=== PATIENT | female | born 1970 | race Caucasian/White ===

== ENCOUNTER 2016-11-10 08:09 | Outpatient (CLI) | payer OTHER ==
[~2016-11-10 08:09] MED LIST changes: +ACETAMINOPHEN TAB 650MG DOSE (2X325MG) PO SCH; -HYDR-3713 PO; +diphenhydrAMINE 25 MG CAP PO SCH
[2016-11-10] MEDS ORDERED: dexameTHASONE 20 MG/5 ML VIAL (J1100) IV SCH (08:45)
[2016-11-10] MEDS ORDERED: diphenhydrAMINE INJ 50MG/ML VIAL (J1200) IV ONE (09:00)
[2016-11-10] MEDS ORDERED: IRON DEXTRAN INJ 25 MG in NS 50 ML IV ONE (09:00)
[2016-11-10] MEDS ORDERED: IRON DEXTRAN INJ 75 MG in NS 100 ML IV ONE (10:15)
[2016-11-10] MEDS ORDERED: HYDR-3713 PO (16:32)
== END 2016-11-10 12:30 | disposition home or self-care (01) ==
LOC: M INFU 08:09
PROVIDERS: ATTEND Internal Medicine Medical Oncology
DX: D80.9 Immunodeficiency with predominantly antibody defects, unspecified (principal); R11.0 Nausea; R06.89 Other abnormalities of breathing; T45.4X5A Adverse effect of iron and its compounds, initial encounter; Y92.238 Other place in hospital as the place of occurrence of the external cause
CPT/HCPCS: 96365; J1100; J1200; J1750

== ENCOUNTER → 2016-11-10 | Outpatient (CLI) | payer OTHER ==
[~2016-11-10] MED LIST: ALB2.5NEB INH; FERR325T3 PO; FLEX10TA2 PO; FURO20TA2 PO; HYDR-3713 PO; IBUP800T23 PO; INDOPOW PO; IRON65TA PO; LEVA500T PO; MELO15TA3 PO; NEUR300C PO; PRED10PA PO; SYNT25TA PO; SYNT75TA PO; TIZA4CAP3 PO; TRAM50TA2 PO; ULTR50TA PO; VITA50003 PO; VITA500047 PO; iron PO
--- NOTE | 2016-11-12 11:03 | SLEEPCENT ---
DATE OF PROCEDURE: 11/10/2016 ORDERED BY: Gallo Hensley. Nocturnal polysomnography was performed for evaluation of sleep apnea syndrome symptoms. 6 hours and 32 minutes of data were reviewed. There were 235 minutes of sleep identified. Sleep latency was prolonged at 29 minutes Rapid eye movement (REM) latency was prolonged at 263 minutes. Sleep architecture showed severe fragmentation and poor progression. Overall sleep efficiency was 61%. The patient's EKG showed a sinus rhythm with an average heart rate of 67 beats per minute. EEG showed reasonably normal wave forms for awake and sleep. There were 307 respiratory events identified of 10 seconds in duration or greater for an apnea-hypopnea index of 78.4. The events were not exclusive to sleep stage, more frequent but not exclusive to the supine posture. They were primarily obstructive in nature. Arousals from respiratory events occurred 35.7 times per hour. Oxygen desaturations fell into the 70s. There was minimal limb activity and remaining measures of sleep physiology were normal. IMPRESSION: Very severe obstructive sleep apnea syndrome (G47.33). Apnea-hypopnea index 78.4. RECOMMENDATION: The patient should be encouraged to return to the sleep disorder center at her earliest convenience for pressure therapy. In the interim, alcohol and sedative avoidance should be practiced and caution exercised during the operation of motor vehicles.
== END | disposition home or self-care (01) ==
LOC: M SLEEP 19:55
PROVIDERS: ATTEND Nurse Practitioner Adult Health
DX: G47.33 Obstructive sleep apnea (adult) (pediatric) (principal)

== ENCOUNTER → 2017-01-18 | Outpatient (REF) | payer OTHER ==
[~2017-01-18] MED LIST changes: -ACETAMINOPHEN TAB 650MG DOSE (2X325MG) PO SCH; +HYDR-3713 PO; -diphenhydrAMINE 25 MG CAP PO SCH
[2017-01-18 18:46] LABS: PERCENT SATURATION 5.5 % (13.2-37.4)
== END ==
LOC: M LAB REF 16:56
PROVIDERS: ATTEND Internal Medicine Medical Oncology
DX: D50.9 Iron deficiency anemia, unspecified (principal)

== ENCOUNTER → 2017-02-02 | Outpatient (REF) | payer OTHER | LOC: M LAB REF 17:13 | PROVIDERS: ATTEND Internal Medicine Medical Oncology | DX: D50.9 Iron deficiency anemia, unspecified (principal) ==

== ENCOUNTER 2017-02-03 13:49 | Outpatient (CLI) | payer OTHER ==
[~2017-02-03] VITALS: Ht 170.2 cm; Wt 145.0 kg
[2017-02-03] VITALS (8 sets, daily range): BP systolic 120–172; BP diastolic 56–89
[2017-02-03] MEDS ORDERED: ACETAMINOPHEN TAB 650MG DOSE (2X325MG) PO ONE (14:15)
[2017-02-03] MEDS ORDERED: diphenhydrAMINE 25 MG CAP PO ONE (14:15)
== END 2017-02-03 23:33 | disposition home or self-care (01) ==
LOC: M OPCLI4PV 13:49 → M MSPAV 13:54 → M OPCLI4PV 23:33
PROVIDERS: ATTEND Internal Medicine Medical Oncology
DX: D50.9 Iron deficiency anemia, unspecified (principal)
CPT/HCPCS: 36430; P9016

== ENCOUNTER → 2017-03-16 | Outpatient (REF) | payer OTHER | LOC: M LAB REF 16:24 | PROVIDERS: ATTEND Internal Medicine Medical Oncology | DX: D50.9 Iron deficiency anemia, unspecified (principal) ==

== ENCOUNTER → 2017-04-28 | Outpatient (CLI) | payer OTHER ==
[~2017-04-28] MED LIST changes: +IBUP1TAB7 PO; -IBUP800T23 PO; +LEVA1TAB2 PO; -LEVA500T PO; +VITA1CAP40 PO; -VITA50003 PO
[2017-04-28 21:20] LABS: ALBUMIN/GLOBULIN RATIO 0.77 (1.00-1.93); ALKALINE PHOSPHATASE 95 U/L (45-117); ALT/SGPT 100 U/L (12-78); AST/SGOT 56 U/L (15-37); BILIRUBIN,TOTAL 0.3 MG/DL (0.2-1.0); BLOOD UREA NITROGEN 9 MG/DL (7-18); CALCIUM LEVEL 8.5 MG/DL (8.5-10.1); CARBON DIOXIDE LEVEL 25 MEQ/L (21-32); CHOLESTEROL LEVEL 178 MG/DL (<200); CREATININE FOR GFR 0.66 MG/DL (0.55-1.02); FERRITIN 22 NG/ML (8-252); GLOMERULAR FILTRATION RATE > 60.0 (>58); GLUCOSE, FASTING 101 MG/DL (70-105); TOTAL PROTEIN 6.9 GM/DL (6.4-8.2); TRIGLYCERIDES LEVEL 177 MG/DL (<150)
[2017-04-28 21:25] LABS: ANION GAP 11 MEQ/L (8-16); CHLORIDE LEVEL 105 MEQ/L (98-107); POTASSIUM SERUM 4.6 MEQ/L (3.5-5.1); SODIUM LEVEL 141 MEQ/L (136-145)
[2017-05-02 13:32] LABS: ALBUMIN % 47.3 % (55.8-66.1); GAMMA GLOBULIN % 22.5 % (11.1-18.8)
[2017-05-02 13:33] LABS: ALBUMIN 3.26 GM/DL (3.29-5.55)
[2017-05-05 00:06] LABS: Lyme Disease IgG/IgM Antibodie <0.91 ISR (0.00-0.90); Lyme Disease IgM Ab Quantitati <0.80 index (0.00-0.79)
== END ==
LOC: M WUC 15:00
PROVIDERS: ATTEND Physician Assistant Medical
DX: M54.5 Low back pain (principal); E03.9 Hypothyroidism, unspecified; E66.9 Obesity, unspecified; E78.2 Mixed hyperlipidemia

== ENCOUNTER → 2017-06-01 | Outpatient (CLI) | payer OTHER ==
[2017-06-01 13:41] LABS: BASO % 0.3 % (0.0-1.0); EOS # 0.2 K/mm3 (0.0-0.50); EOS % 2.5 % (0.0-3.0); LYMPH # 2.2 K/mm3 (1.5-4.5); LYMPH % 24.6 % (24.0-44.0); MEAN CORPUSCULAR HEMOGLOBIN 23.9 pg (27.0-33.0); MEAN CORPUSCULAR HGB CONC 30.2 g/dl (32.0-36.5); MEAN CORPUSCULAR VOLUME 79.1 fl (80.0-96.0); MONO # 0.4 K/mm3 (0.0-0.8); MONO % 4.1 % (0.0-5.0); NEUTROPHILS # 5.9 K/mm3 (1.8-7.7); RED CELL DISTRIBUTION WIDTH 16.2 % (11.5-14.5); WHITE BLOOD COUNT 8.8 K/mm3 (4.0-10.0)
[2017-06-01 15:57] LABS: ALBUMIN/GLOBULIN RATIO 0.75 (1.00-1.93); ALKALINE PHOSPHATASE 95 U/L (45-117); ALT/SGPT 94 U/L (12-78); ANION GAP 7 MEQ/L (8-16); AST/SGOT 53 U/L (15-37); BILIRUBIN,TOTAL 0.2 MG/DL (0.2-1.0); BLOOD UREA NITROGEN 13 MG/DL (7-18); CALCIUM LEVEL 8.7 MG/DL (8.5-10.1); CARBON DIOXIDE LEVEL 29 MEQ/L (21-32); CHLORIDE LEVEL 104 MEQ/L (98-107); CHOLESTEROL LEVEL 187 MG/DL (<200); CREATININE FOR GFR 0.68 MG/DL (0.55-1.02); FERRITIN 15 NG/ML (8-252); GLOMERULAR FILTRATION RATE > 60.0 (>58); GLUCOSE, FASTING 142 MG/DL (70-105); POTASSIUM SERUM 4.6 MEQ/L (3.5-5.1); SODIUM LEVEL 140 MEQ/L (136-145); TRIGLYCERIDES LEVEL 207 MG/DL (<150)
[2017-06-02 10:45] LABS: ALBUMIN 3.44 GM/DL (3.29-5.55); ALBUMIN % 49.2 % (55.8-66.1); GAMMA GLOBULIN % 21.8 % (11.1-18.8)
== END ==
LOC: M WUC 10:49
PROVIDERS: ATTEND Physician Assistant Medical
DX: D89.0 Polyclonal hypergammaglobulinemia (principal); E78.2 Mixed hyperlipidemia

== ENCOUNTER → 2017-09-12 | Outpatient (CLI) | payer OTHER ==
[2017-09-12 19:37] LABS: BASO # 0.1 10^3/uL (0.0-0.2); BASO % 0.5 % (0.0-1.0); EOS # 0.4 10^3/uL (0.0-0.50); EOS % 3.3 % (0.0-3.0); LYMPH # 2.7 10^3/uL (1.5-4.5); LYMPH % 24.9 % (24.0-44.0); MEAN CORPUSCULAR HEMOGLOBIN 23.6 pg (27.0-33.0); MEAN CORPUSCULAR HGB CONC 29.3 g/dl (32.0-36.5); MEAN CORPUSCULAR VOLUME 80.5 fl (80.0-96.0); MONO # 0.7 10^3/uL (0.0-0.8); NEUTROPHILS % 64.3 % (36.0-66.0); PLATELET COUNT, AUTOMATED 336 10^3/uL (150-450); RED CELL DISTRIBUTION WIDTH 16.9 % (11.5-14.5); WHITE BLOOD COUNT 10.9 10^3/uL (4.0-10.0)
[2017-09-12 19:59] LABS: ALBUMIN 2.8 GM/DL (3.2-5.2); ALBUMIN/GLOBULIN RATIO 0.72 (1.00-1.93); ALKALINE PHOSPHATASE 86 U/L (45-117); ALT/SGPT 91 U/L (12-78); ANION GAP 6 MEQ/L (8-16); AST/SGOT 55 U/L (7-37); BILIRUBIN,TOTAL 0.3 MG/DL (0.2-1.0); BLOOD UREA NITROGEN 11 MG/DL (7-18); CALCIUM LEVEL 8.6 MG/DL (8.5-10.1); CARBON DIOXIDE LEVEL 33 MEQ/L (21-32); CHLORIDE LEVEL 103 MEQ/L (98-107); CHOLESTEROL LEVEL 202 MG/DL (<200); CREATININE FOR GFR 0.58 MG/DL (0.55-1.02); GLOMERULAR FILTRATION RATE > 60.0 (>58); GLUCOSE, FASTING 99 MG/DL (70-105); POTASSIUM SERUM 4.3 MEQ/L (3.5-5.1); SODIUM LEVEL 142 MEQ/L (136-145); T UPTAKE 33 % (30-39); THYROXINE (T4) 10.8 UG/DL (4.5-12.0); TOTAL PROTEIN 6.7 GM/DL (6.4-8.2); TRIGLYCERIDES LEVEL 159 MG/DL (<150)
== END ==
LOC: M WUC 17:35
PROVIDERS: ATTEND Physician Assistant Medical
DX: E03.9 Hypothyroidism, unspecified (principal); E55.9 Vitamin D deficiency, unspecified; E78.2 Mixed hyperlipidemia

== ENCOUNTER → 2017-09-26 | Outpatient (REF) | payer OTHER ==
[2017-09-26 20:31] LABS: PERCENT SATURATION 10.3 % (13.2-45.0)
== END ==
LOC: M LAB REF 17:54
PROVIDERS: ATTEND Internal Medicine Medical Oncology
DX: D50.9 Iron deficiency anemia, unspecified (principal)

== ENCOUNTER → 2017-12-13 | Outpatient (REF) | payer OTHER, MEDICAID ==
[2017-12-13 20:20] LABS: BASO # 0.1 10^3/uL (0.0-0.2); BASO % 0.9 % (0.0-1.0); EOS # 0.4 10^3/uL (0.0-0.50); EOS % 5.1 % (0.0-3.0); HEMATOCRIT 42.4 % (36.0-47.0); HEMOGLOBIN 12.8 g/dl (12.0-16.0); IMMATURE GRANULOCYTE % 0.7 % (0-3.0); LYMPH # 2.7 10^3/uL (1.5-4.5); LYMPH % 34.6 % (24.0-44.0); MEAN CORPUSCULAR HEMOGLOBIN 24.1 pg (27.0-33.0); MEAN CORPUSCULAR HGB CONC 30.2 g/dl (32.0-36.5); MEAN CORPUSCULAR VOLUME 79.8 fl (80.0-96.0); MONO # 0.7 10^3/uL (0.0-0.8); MONO % 8.5 % (0.0-5.0); NEUTROPHILS # 3.9 10^3/uL (1.8-7.7); NEUTROPHILS % 50.2 % (36.0-66.0); PLATELET COUNT, AUTOMATED 359 10^3/uL (150-450); RED BLOOD COUNT 5.31 10^6/uL (4.00-5.40); RED CELL DISTRIBUTION WIDTH 17.4 % (11.5-14.5); WHITE BLOOD COUNT 7.7 10^3/uL (4.0-10.0)
[2017-12-13 20:29] LABS: TOTAL 25(OH) VITAMIN D 14.5 NG/ML (30.0-100.0)
[2017-12-13 20:30] LABS: FOLLICLE STIMULATING HORMONE 13.5 mIU/mL
[2017-12-13 20:33] LABS: ALBUMIN 3.5 GM/DL (3.2-5.2); ALBUMIN/GLOBULIN RATIO 0.97 (1.00-1.93); ALKALINE PHOSPHATASE 77 U/L (45-117); ALT/SGPT 70 U/L (12-78); ANION GAP 7 MEQ/L (8-16); AST/SGOT 58 U/L (7-37); BILIRUBIN,TOTAL 0.4 MG/DL (0.2-1.0); BLOOD UREA NITROGEN 7 MG/DL (7-18); CALCIUM LEVEL 8.6 MG/DL (8.5-10.1); CARBON DIOXIDE LEVEL 28 MEQ/L (21-32); CHLORIDE LEVEL 107 MEQ/L (98-107); CHOLESTEROL LEVEL 163 MG/DL (<200); CHOLESTEROL RISK RATIO 6.269 (<5); CREATININE FOR GFR 0.62 MG/DL (0.55-1.30); FERRITIN 25 NG/ML (8-252); GLOMERULAR FILTRATION RATE > 60.0 (>58); GLUCOSE, FASTING 100 MG/DL (70-100); HDL CHOLESTEROL 26 MG/DL (>40); IRON (FE) 33 UG/DL (50-170); LDL CHOLESTEROL 94.4 MG/DL (<100); NON-HDL-C 137 MG/DL; POTASSIUM SERUM 4.2 MEQ/L (3.5-5.1); SODIUM LEVEL 142 MEQ/L (136-145); TOTAL PROTEIN 7.1 GM/DL (6.4-8.2); TRIGLYCERIDES LEVEL 213 MG/DL (<150)
[2017-12-14 11:26] LABS: HIV 1&2 SCREEN CENTAUR NEGATIVE (NEGATIVE)
== END ==
LOC: M LAB REF 17:18
DX: Z12.39 Encounter for other screening for malignant neoplasm of breast (principal); Z68.45 Body mass index [BMI] 70 or greater, adult; N91.4 Secondary oligomenorrhea; D50.9 Iron deficiency anemia, unspecified

== ENCOUNTER → 2018-03-03 | Outpatient (CLI) | payer OTHER ==
[2018-03-03 12:22] LABS: HEMATOCRIT 40.7 % (36.0-47.0); HEMOGLOBIN 12.8 g/dl (12.0-15.5); MEAN CORPUSCULAR HGB CONC 31.4 g/dl (32.0-36.5); MEAN CORPUSCULAR VOLUME 82.7 fl (80.0-96.0); PLATELET COUNT, AUTOMATED 254 10^3/uL (150-450); RED BLOOD COUNT 4.92 10^6/uL (4.00-5.40); RED CELL DISTRIBUTION WIDTH 16.9 % (11.5-14.5); WHITE BLOOD COUNT 7.4 10^3/uL (4.0-10.0)
[2018-03-03 13:07] LABS: TOTAL T3 106.8 NG/DL (60.0-181.0); VITAMIN B12 LEVEL 693 PG/ML (247-911)
[2018-03-03 13:18] LABS: ALBUMIN 3.3 GM/DL (3.2-5.2); ALBUMIN/GLOBULIN RATIO 0.89 (1.00-1.93); ALKALINE PHOSPHATASE 90 U/L (45-117); ALT/SGPT 123 U/L (12-78); ANION GAP 5 MEQ/L (8-16); AST/SGOT 118 U/L (7-37); BILIRUBIN,TOTAL 0.6 MG/DL (0.2-1.0); BLOOD UREA NITROGEN 8 MG/DL (7-18); CALCIUM LEVEL 9.2 MG/DL (8.5-10.1); CARBON DIOXIDE LEVEL 28 MEQ/L (21-32); CHLORIDE LEVEL 110 MEQ/L (98-107); CHOLESTEROL LEVEL 171 MG/DL (<200); CHOLESTEROL RISK RATIO 6.333 (<5); CREATININE FOR GFR 0.59 MG/DL (0.55-1.30); GLOMERULAR FILTRATION RATE > 60.0 (>58); GLUCOSE, FASTING 92 MG/DL (70-100); HDL CHOLESTEROL 27 MG/DL (>40); IRON (FE) 53 UG/DL (50-170); LDL CHOLESTEROL 104.6 MG/DL (<100); NON-HDL-C 144 MG/DL; POTASSIUM SERUM 4.2 MEQ/L (3.5-5.1); SODIUM LEVEL 143 MEQ/L (136-145); THYROXINE (T4) 12.5 UG/DL (4.5-12.0); TOTAL IRON BINDING CAPACITY 332 UG/DL (250-450); TRIGLYCERIDES LEVEL 197 MG/DL (<150)
[2018-03-03 13:30] LABS: ESTIMATED AVERAGE GLUCOSE 111 MG/DL (60-110); HEMOGLOBIN A1c 5.5 %
== END ==
LOC: M LAB 11:46
DX: D64.9 Anemia, unspecified (principal); E03.9 Hypothyroidism, unspecified
CPT/HCPCS: 83550

== ENCOUNTER → 2018-05-08 | Outpatient (REF) | payer OTHER, MEDICAID ==
[2018-05-08 18:35] LABS: FERRITIN 65 NG/ML (8-252); IRON (FE) 63 UG/DL (50-170); TOTAL IRON BINDING CAPACITY 287 UG/DL (250-450); TOTAL PROTEIN 7.2 GM/DL (6.4-8.2)
[2018-05-10 12:34] LABS: ALPHA-1-GLOBULIN % 4.9 % (2.9-4.9); ALPHA-1-GLOBULINS 0.35 GM/DL (0.17-0.41); ALPHA-2-GLOBULINS 0.81 GM/DL (0.42-0.99); ALPHA-2-GLOBULINS % 11.3 % (7.1-11.8); BETA-2-GLOBULINS 0.46 GM/DL (0.19-0.55); BETA-2-GLOBULINS % 6.4 % (3.2-6.5); GAMMA GLOBULIN % 20.4 % (11.1-18.8); GAMMA GLOBULINS 1.47 GM/DL (0.65-1.58)
[2018-05-11 00:20] LABS: FREE KAPPA LIGHT CHAINS SERUM 47.5 mg/L (3.3-19.4); KAPPA/LAMBDA RATIO SERUM 1.53 (0.26-1.65)
== END ==
LOC: M LAB REF 17:41
DX: Z00.00 Encounter for general adult medical examination without abnormal findings (principal)
CPT/HCPCS: 83550

== ENCOUNTER → 2018-05-08 | Outpatient (CLI) | payer OTHER, MEDICAID ==
[2018-05-08 20:02] LABS: ALT/SGPT 60 U/L (12-78); AST/SGOT 67 U/L (7-37)
[2018-05-10 09:33] LABS: HEPATITIS B SURFACE ANTIGEN NEGATIVE (NEGATIVE)
[2018-05-10 09:49] LABS: HEPATITIS C VIRUS ABY INDEX < 0.0 INDEX (<0.8)
[2018-05-10 09:50] LABS: HEPATITIS B CORE ANTIBODY IGM NEGATIVE (NEGATIVE)
[2018-05-10 09:51] LABS: HEPATITIS A ANTIBODY IGM NEGATIVE (NEGATIVE)
== END ==
LOC: M WUC 16:57
DX: R53.83 Other fatigue (principal)
CPT/HCPCS: 84460

== ENCOUNTER 2018-05-15 17:25 | Observation (INO) | payer OTHER, MEDICAID ==
[2018-05-15] MEDS ORDERED: ISOVUE-370 76% 100ML VIAL (Q9967) As Ordered (19:02)
[2018-05-15] MEDS: NS 1,000 ML IV (19:16)
[2018-05-15] MEDS: ONDANSETRON 4MG/2ML VIAL (J2405) IV (19:16)
[2018-05-15] MEDS: MORPHINE 4 MG/ML 1ML VIAL/SYRINGE (J2270) IV ×2 (19:16→20:13)
[2018-05-15 19:26] LABS: BASO # 0.1 10^3/uL (0.0-0.2); BASO % 0.6 % (0.0-1.0); EOS # 0.1 10^3/uL (0.0-0.50); HEMATOCRIT 45.3 % (36.0-47.0); HEMOGLOBIN 14.4 g/dl (12.0-15.5); IMMATURE GRANULOCYTE % 0.4 % (0-3.0); LYMPH # 2.2 10^3/uL (1.5-4.5); MEAN CORPUSCULAR HEMOGLOBIN 27.8 pg (27.0-33.0); MEAN CORPUSCULAR HGB CONC 31.8 g/dl (32.0-36.5); MEAN CORPUSCULAR VOLUME 87.5 fl (80.0-96.0); MONO # 0.4 10^3/uL (0.0-0.8); MONO % 3.5 % (0.0-5.0); NEUTROPHILS # 9.4 10^3/uL (1.8-7.7); NEUTROPHILS % 76.5 % (36.0-66.0); PLATELET COUNT, AUTOMATED 300 10^3/uL (150-450); RED BLOOD COUNT 5.18 10^6/uL (4.00-5.40); RED CELL DISTRIBUTION WIDTH 15.1 % (11.5-14.5); WHITE BLOOD COUNT 12.3 10^3/uL (4.0-10.0)
[2018-05-15 19:48] LABS: ALBUMIN 3.6 GM/DL (3.2-5.2); ALKALINE PHOSPHATASE 107 U/L (45-117); ALT/SGPT 74 U/L (12-78); ANION GAP 10 MEQ/L (8-16); AST/SGOT 91 U/L (7-37); BILIRUBIN,DIRECT 0.2 MG/DL (0.0-0.2); BILIRUBIN,TOTAL 0.7 MG/DL (0.2-1.0); BLOOD UREA NITROGEN 11 MG/DL (7-18); CALCIUM LEVEL 9.4 MG/DL (8.5-10.1); CARBON DIOXIDE LEVEL 26 MEQ/L (21-32); CHLORIDE LEVEL 108 MEQ/L (98-107); CREATININE FOR GFR 0.84 MG/DL (0.55-1.30); GLOMERULAR FILTRATION RATE > 60.0 (>58); GLUCOSE, FASTING 136 MG/DL (70-100); LIPASE 221 U/L (73-393); SODIUM LEVEL 144 MEQ/L (136-145); TOTAL PROTEIN 8.1 GM/DL (6.4-8.2)
[2018-05-15 19:51] LABS: LACTIC ACID SEPSIS PROTOCOL 2.1 MMOL/L (0.4-2.0)
[2018-05-15] MEDS ORDERED: fentaNYL 250 MCG/5 ML INJECTION (J3010) As Ordered (21:40)
[2018-05-15] MEDS ORDERED: MIDAZOLAM INJ 2 MG/2 ML VIAL (J2250) As Ordered (21:40)
[2018-05-15] MEDS ORDERED: ROCURONIUM BROMIDE 50 MG/5 ML VIAL As Ordered ×2 (21:40→23:39)
[2018-05-15] MEDS ORDERED: LIDOCAINE 2% INJ 100 MG/5 ML SDV (FOR ANES.) As Ordered (21:40)
[2018-05-15] MEDS ORDERED: dexameTHASONE 4 MG/ML 1ML VIAL (J1100) As Ordered (21:40)
[2018-05-15] MEDS ORDERED: ONDANSETRON 4MG/2ML VIAL (J2405) As Ordered (21:40)
[2018-05-16] MEDS ORDERED: GLYCOPYRROLATE INJ 0.2 MG/ML 2 ML VIAL As Ordered ×2 (00:23→00:24)
[2018-05-16] MEDS ORDERED: NEOSTIGMINE 10 MG/10 ML VIAL (J2710) As Ordered (00:23)
[2018-05-16] MEDS ORDERED: ePHEDrine SULFATE 25 MG/5 ML(5MG/ML) SYRINGE As Ordered (00:29)
[2018-05-16] MEDS: BUPIVACAINE HCL 0.25% 30 ML VIAL As Ordered (00:41)
[2018-05-16] MEDS ORDERED: ACETAMINOPHEN TAB 650MG DOSE (2X325MG) PO (01:00)
[2018-05-16] MEDS ORDERED: ALBUTEROL 90 MCG/ACT 8GM HFA INHALER INH (01:00)
[2018-05-16] MEDS ORDERED: METOCLOPRAMIDE INJ 10MG/2ML VIAL (J2765) IV (01:15)
[2018-05-16] MEDS ORDERED: fentaNYL 100 MCG/2 ML INJECTION (J3010) IV (01:15)
[2018-05-16] MEDS ORDERED: ONDANSETRON 4MG/2ML VIAL (J2405) IV (01:15)
[2018-05-16] MEDS ORDERED: KETOROLAC 30 MG/ML VIAL (J1885) IV (01:15)
[2018-05-16] MEDS: LR 1,000 ML IV ×4 (01:15→13:35)
[2018-05-16] MEDS ORDERED: PERCOCET 5MG/325MG TAB PO (01:15)
[2018-05-16] MEDS: ONDANSETRON 4MG/2ML VIAL (J2405) IV ×2 (02:14→08:07)
[2018-05-16] MEDS: MORPHINE 4 MG/ML 1ML VIAL/SYRINGE (J2270) IV ×2 (02:29→05:21)
[2018-05-16] MEDS: NORCO, ANEXSIA 5/325MG TABLET (HYDROcodone/ACETAMINOPHEN) PO ×4 (08:09→21:31)
[2018-05-16 08:14] LABS: KETONE, URINE AUTO RFX NEGATIVE (NEGATIVE); LEUKOCYTE ESTERASE UR AUTO RFX NEGATIVE (NEGATIVE); MUCUS, URINE RFX SMALL (NEGATIVE); NITRITE, URINE AUTO RFX NEGATIVE (NEGATIVE); RBC, URINE AUTO RFX 67 /HPF (0-3); SPECIFIC GRAVITY UR AUTO RFX 1.021 (1.002-1.035); SQUAM EPITHELIAL CELL UR AURFX 1 /HPF (0-6); WBC, URINE AUTO RFX 15 /HPF (0-3)
[2018-05-16] MEDS: LEVOTHYROXINE 150MCG TABLET (0.15MG) PO (15:16)
[2018-05-16] MEDS: OMEPRAZOLE 20 MG CAP PO (15:16)
[2018-05-16] MEDS: SUCRALFATE 1 GM TAB PO (21:31)
[2018-05-16] MEDS: MULTIVITAMINS CHILDREN'S CHEWABLE TABLET PO (21:31)
[2018-05-17] MEDS: LR 1,000 ML IV (02:49)
[2018-05-17] MEDS: ONDANSETRON 4MG/2ML VIAL (J2405) IV ×3 (02:58→19:44)
[2018-05-17] MEDS: NORCO, ANEXSIA 5/325MG TABLET (HYDROcodone/ACETAMINOPHEN) PO ×3 (02:59→13:13)
[2018-05-17] MEDS: LEVOTHYROXINE 150MCG TABLET (0.15MG) PO (16:25)
[2018-05-17] MEDS: MULTIVITAMINS CHILDREN'S CHEWABLE TABLET PO (16:25)
[2018-05-17] MEDS: OMEPRAZOLE 20 MG CAP PO (16:25)
[2018-05-17] MEDS: SUCRALFATE 1 GM TAB PO ×2 (20:31→21:00)
== END 2018-05-18 13:07 | disposition home or self-care (01) ==
LOC: M MSPAV 05-16 01:55 → M SDC 05-16 18:28 → M ED 17:25 → M MSPAV 05-16 18:30 → M SDC 21:31
DX: K43.0 Incisional hernia with obstruction, without gangrene (principal); D64.9 Anemia, unspecified; J44.9 Chronic obstructive pulmonary disease, unspecified; E03.9 Hypothyroidism, unspecified; Z98.84 Bariatric surgery status; Z79.899 Other long term (current) drug therapy; F17.210 Nicotine dependence, cigarettes, uncomplicated; Z88.0 Allergy status to penicillin
CPT/HCPCS: 49653

== ENCOUNTER 2018-08-06 12:31 | Day surgery (SDC) | payer OTHER ==
[2018-08-06] MEDS ORDERED: GASTROGRAFIN SOLUTION 30ML (Q9963) As Ordered (13:21)
[2018-08-06] MEDS: NS 1,000 ML IV (13:35)
[2018-08-06] MEDS: MORPHINE 4 MG/ML 1ML VIAL/SYRINGE (J2270) IV ×2 (13:35→15:42)
[2018-08-06] MEDS: GASTROGRAFIN SOLUTION 30ML PO ×2 (13:35→14:04)
[2018-08-06] MEDS: ONDANSETRON 4MG/2ML VIAL (J2405) IV ×2 (13:35→16:00)
[2018-08-06 13:39] LABS: BASO # 0.1 10^3/uL (0.0-0.2); BASO % 0.3 % (0.0-1.0); EOS % 0.2 % (0.0-3.0); HEMATOCRIT 42.2 % (36.0-47.0); HEMOGLOBIN 13.5 g/dl (12.0-15.5); IMMATURE GRANULOCYTE % 0.4 % (0-3.0); LYMPH # 1.3 10^3/uL (1.5-4.5); LYMPH % 8.6 % (24.0-44.0); MEAN CORPUSCULAR HEMOGLOBIN 28.8 pg (27.0-33.0); MEAN CORPUSCULAR VOLUME 90.2 fl (80.0-96.0); MONO # 0.6 10^3/uL (0.0-0.8); MONO % 3.6 % (0.0-5.0); NEUTROPHILS # 13.4 10^3/uL (1.8-7.7); NEUTROPHILS % 86.9 % (36.0-66.0); PLATELET COUNT, AUTOMATED 251 10^3/uL (150-450); RED BLOOD COUNT 4.68 10^6/uL (4.00-5.40); RED CELL DISTRIBUTION WIDTH 13.5 % (11.5-14.5); WHITE BLOOD COUNT 15.4 10^3/uL (4.0-10.0)
[2018-08-06 14:07] LABS: CONTROL LINE HCG INT CTR LINE PRESENT; HCG, SERUM QUALITATIVE NEGATIVE (NEGATIVE)
[2018-08-06 14:09] LABS: ALBUMIN 3.1 GM/DL (3.2-5.2); ALBUMIN/GLOBULIN RATIO 0.89 (1.00-1.93); ALKALINE PHOSPHATASE 86 U/L (45-117); ALT/SGPT 26 U/L (12-78); ANION GAP 8 MEQ/L (8-16); AST/SGOT 23 U/L (7-37); BILIRUBIN,DIRECT 0.2 MG/DL (0.0-0.2); BILIRUBIN,TOTAL 0.7 MG/DL (0.2-1.0); BLOOD UREA NITROGEN 10 MG/DL (7-18); CALCIUM LEVEL 8.5 MG/DL (8.5-10.1); CARBON DIOXIDE LEVEL 26 MEQ/L (21-32); CHLORIDE LEVEL 109 MEQ/L (98-107); GLOMERULAR FILTRATION RATE > 60.0 (>58); GLUCOSE, FASTING 113 MG/DL (70-100); LIPASE 96 U/L (73-393); POTASSIUM SERUM 4.2 MEQ/L (3.5-5.1); SODIUM LEVEL 143 MEQ/L (136-145); TOTAL PROTEIN 6.6 GM/DL (6.4-8.2)
[2018-08-06] MEDS ORDERED: ISOVUE-370 76% 100ML VIAL (Q9967) As Ordered (14:39)
[2018-08-06] MEDS: CLINDAMYCIN 600 MG in APPROPRIATE DILUENT 1 EA IV (15:50)
[2018-08-06] MEDS ORDERED: fentaNYL 250 MCG/5 ML INJECTION (J3010) As Ordered (17:17)
[2018-08-06] MEDS ORDERED: LIDOCAINE 2% INJ 100 MG/5 ML SDV (FOR ANES.) As Ordered (17:17)
[2018-08-06] MEDS ORDERED: ONDANSETRON 4MG/2ML VIAL (J2405) As Ordered (17:17)
[2018-08-06] MEDS ORDERED: PROPOFOL 200 MG/20 ML VIAL As Ordered (17:17)
[2018-08-06] MEDS ORDERED: ROCURONIUM BROMIDE 50 MG/5 ML VIAL As Ordered (17:17)
[2018-08-06] MEDS ORDERED: dexameTHASONE 4 MG/ML 1ML VIAL (J1100) As Ordered (17:17)
[2018-08-06] MEDS ORDERED: MIDAZOLAM INJ 2 MG/2 ML VIAL (J2250) As Ordered (17:17)
[2018-08-06] MEDS ORDERED: SUGAMMADEX SODIUM 500 MG/5 ML VIAL (BRIDION) As Ordered (17:25)
[2018-08-06] MEDS ORDERED: MORPHINE 4 MG/ML 1ML VIAL/SYRINGE (J2270) IV (17:30)
[2018-08-06] MEDS ORDERED: ONDANSETRON 4MG/2ML VIAL (J2405) IV ×2 (17:30→19:15)
[2018-08-06] MEDS ORDERED: MOM 30ML SUSPENSION UDC PO (17:30)
[2018-08-06] MEDS ORDERED: ACETAMINOPHEN TAB 650MG DOSE (2X325MG) PO (17:30)
[2018-08-06] MEDS ORDERED: CIPROFLOXACIN 400 MG in APPROPRIATE DILUENT 1 EA IV (18:00)
[2018-08-06] MEDS: BUPIVACAINE/EPIN 0.25% 30 ML VIAL As Ordered (18:30)
[2018-08-06] MEDS: LR 1,000 ML IV ×2 (19:15→20:35)
[2018-08-06] MEDS ORDERED: PERCOCET 5MG/325MG TAB PO (19:15)
[2018-08-06] MEDS ORDERED: fentaNYL 100 MCG/2 ML INJECTION (J3010) IV (19:15)
[2018-08-06] MEDS: metroNIDAZOLE 500 MG in APPROPRIATE DILUENT 1 EA IV (20:00)
[2018-08-06] MEDS: SENOKOT S TAB PO (20:35)
[2018-08-06] MEDS: PANTOPRAZOLE 40MG INJ (PROTONIX) (C9113) IV (20:35)
[2018-08-06] MEDS: HEPARIN SOD (PORCINE) 5000 UNITS/ML VIAL SC (20:37)
[2018-08-06] MEDS: CIPROFLOXACIN 400 MG in APPROPRIATE DILUENT 1 EA IV (22:13)
[2018-08-06] MEDS: NORCO, ANEXSIA 5/325MG TABLET (HYDROcodone/ACETAMINOPHEN) PO (22:14)
[2018-08-07] MEDS: LR 1,000 ML IV (01:30)
[2018-08-07] MEDS: KETOROLAC 30 MG/ML VIAL (J1885) IV ×2 (03:29→09:43)
[2018-08-07] MEDS: NORCO, ANEXSIA 5/325MG TABLET (HYDROcodone/ACETAMINOPHEN) PO (04:10)
[2018-08-07] MEDS: metroNIDAZOLE 500 MG in APPROPRIATE DILUENT 1 EA IV (04:10)
[2018-08-07] MEDS: HEPARIN SOD (PORCINE) 5000 UNITS/ML VIAL SC (06:19)
[2018-08-07] MEDS: LEVOTHYROXINE 150MCG TABLET (0.15MG) PO (06:19)
[2018-08-07 06:46] LABS: HEMATOCRIT 40.2 % (36.0-47.0); HEMOGLOBIN 12.5 g/dl (12.0-15.5); MEAN CORPUSCULAR HEMOGLOBIN 28.4 pg (27.0-33.0); MEAN CORPUSCULAR HGB CONC 31.1 g/dl (32.0-36.5); MEAN CORPUSCULAR VOLUME 91.4 fl (80.0-96.0); PLATELET COUNT, AUTOMATED 235 10^3/uL (150-450); RED CELL DISTRIBUTION WIDTH 13.5 % (11.5-14.5); WHITE BLOOD COUNT 12.8 10^3/uL (4.0-10.0)
[2018-08-07 07:20] LABS: ALBUMIN 2.8 GM/DL (3.2-5.2); ALBUMIN/GLOBULIN RATIO 0.68 (1.00-1.93); ALKALINE PHOSPHATASE 150 U/L (45-117); ALT/SGPT 56 U/L (12-78); ANION GAP 6 MEQ/L (8-16); AST/SGOT 54 U/L (7-37); BILIRUBIN,TOTAL 0.6 MG/DL (0.2-1.0); BLOOD UREA NITROGEN 10 MG/DL (7-18); CALCIUM LEVEL 8.5 MG/DL (8.5-10.1); CARBON DIOXIDE LEVEL 28 MEQ/L (21-32); CHLORIDE LEVEL 108 MEQ/L (98-107); CREATININE FOR GFR 0.56 MG/DL (0.55-1.30); GLOMERULAR FILTRATION RATE > 60.0 (>58); GLUCOSE, FASTING 109 MG/DL (70-100); POTASSIUM SERUM 4.4 MEQ/L (3.5-5.1); SODIUM LEVEL 142 MEQ/L (136-145); TOTAL PROTEIN 6.9 GM/DL (6.4-8.2)
[2018-08-07] MEDS: SENOKOT S TAB PO (09:00)
== END 2018-08-07 14:25 | disposition home or self-care (01) ==
LOC: M PED 20:00 → M ED 12:31 → M SDC 08-07 14:25 → M PED 20:00
DX: K35.80 Unspecified acute appendicitis (principal); E03.9 Hypothyroidism, unspecified; G47.30 Sleep apnea, unspecified; R06.09 Other forms of dyspnea; E66.9 Obesity, unspecified; Z68.41 Body mass index [BMI] 40.0-44.9, adult; Z88.0 Allergy status to penicillin; Z88.8 Allergy status to other drugs, medicaments and biological substances; Z79.899 Other long term (current) drug therapy; Z98.84 Bariatric surgery status; Z72.0 Tobacco use
CPT/HCPCS: 44970

== ENCOUNTER → 2019-02-20 | Outpatient (CLI) | payer OTHER ==
[~2019-02-20] MED LIST changes: +BACT800T5 PO; +CALC250T PO; +CARA1TAB6 PO; +CIPR1TAB20 PO; +CIPR500T3 PO; +HYDR-3716 PO; +OMEP20TA PO; +PATIENT COMMENT; +SYNT150T PO; +TIZA4CAP PO; -TIZA4CAP3 PO; +VENTAER INH; +VITA-193 PO; -VITA1CAP40 PO; +VITA50005 PO; +VITACHTA PO; +VITMTA PO
--- NOTE | 2019-02-20 16:53 | REP ---
BILATERAL MAMMOGRAM WITH 3D TOMOSYNTHESIS, DIAGNOSTIC MAMMOGRAM LEFT BREAST AND LEFT BREAST ULTRASOUND: Patient reportedly has a palpable lump medially and superiorly left breast. The area is marked on the skin with a triangular marker and additional spot compression views are performed. Comparison is made with prior study 05/25/2012. Trevor Cleveland lifetime risk of breast cancer is 7.3%. Mild scattered fibroglandular tissue is seen bilaterally. A couple of tiny intramammary lymph nodes are seen in the upper outer quadrant of each breast. There is no new mass or clustered microcalcifications. Real-time sonographic evaluation of the palpable lump in the upper inner left breast demonstrates an oval solid nodule. This measures 3.4 x 2.6 x 1.2 cm. IMPRESSION: ACR 4 suspicious. At the site of the palpable lump sonographically is an oval nodule which appears solid measuring 3.4 x 2.6 x 1.2 cm. This is nonspecific. It could represent a lipoma as it has similar echotexture to adjacent subcutaneous fat. However, neoplasm cannot be excluded. I would recommend either ultrasound guided bx, or if the patient desires, an MRI may be performed to further evaluate the nodule and determine if this does indeed represent a lipoma. BIRADS 4: BI-RADS/ACR category 4 mammogram. Suspicious Abnormality - biopsy should be considered. This mammogram was interpreted with the aid of an FDA-approved computer-aided detection system. The patient states she/he had a clinical breast exam in 01/2019. The patient letter being requested is M4. Electronically Signed by Bonifacio Rashid MD 02/21/2019 04:48 P
== END ==
LOC: M RAD 11:29
PROVIDERS: ATTEND Family Medicine
DX: N63.20 Unspecified lump in the left breast, unspecified quadrant (principal)
CPT/HCPCS: 76642; 77066; G0279

== ENCOUNTER → 2019-12-17 | Outpatient (CLI) | payer OTHER ==
[~2019-12-17] MED LIST changes: +CYAN500T9 PO; +OMEP-358 PO; -OMEP20TA PO; -VITA-193 PO
[2019-12-17 16:39] LABS: HEMATOCRIT 42.9 % (36.0-47.0); HEMOGLOBIN 13.7 g/dl (12.0-15.5); MEAN CORPUSCULAR HEMOGLOBIN 29.3 pg (27.0-33.0); MEAN CORPUSCULAR HGB CONC 31.9 g/dl (32.0-36.5); MEAN CORPUSCULAR VOLUME 91.7 fl (80.0-96.0); PLATELET COUNT, AUTOMATED 218 10^3/uL (150-450); RED BLOOD COUNT 4.68 10^6/uL (4.00-5.40); WHITE BLOOD COUNT 7.6 10^3/uL (4.0-10.0)
[2019-12-17 16:45] LABS: HEMOGLOBIN A1c 5.4 %
[2019-12-17 16:59] LABS: ALBUMIN 3.5 GM/DL (3.2-5.2); ALT/SGPT 15 U/L (12-78); BILIRUBIN,TOTAL 0.2 MG/DL (0.2-1.0); BLOOD UREA NITROGEN 18 MG/DL (7-18); CALCIUM LEVEL 8.7 MG/DL (8.5-10.1); CARBON DIOXIDE LEVEL 27 MEQ/L (21-32); CHLORIDE LEVEL 111 MEQ/L (98-107); CHOLESTEROL LEVEL 181 MG/DL (<200); CHOLESTEROL RISK RATIO 4.641 (<5); CREATININE FOR GFR 0.56 MG/DL (0.55-1.30); GLOMERULAR FILTRATION RATE > 60.0 (>51); GLUCOSE, FASTING 94 MG/DL (70-100); HDL CHOLESTEROL 39 MG/DL (>40); LDL CHOLESTEROL 91 MG/DL (<100); NON-HDL-C 142 MG/DL; POTASSIUM SERUM 4.5 MEQ/L (3.5-5.1); SODIUM LEVEL 143 MEQ/L (136-145); TOTAL PROTEIN 6.9 GM/DL (6.4-8.2); TRIGLYCERIDES LEVEL 256 MG/DL (<150)
== END ==
LOC: M WUC 15:10
PROVIDERS: ATTEND Family Medicine
DX: D64.9 Anemia, unspecified (principal); R53.83 Other fatigue

== ENCOUNTER → 2020-01-28 | Outpatient (CLI) | payer OTHER ==
[2020-01-28 16:21] LABS: BASO # 0.1 10^3/uL (0.0-0.2); BASO % 1.1 % (0.0-1.0); EOS # 0.2 10^3/uL (0.0-0.5); EOS % 3.2 % (0.0-3.0); HEMOGLOBIN 13.7 g/dl (12.0-15.5); LYMPH # 2.3 10^3/uL (1.5-5.0); LYMPH % 36.6 % (24.0-44.0); MEAN CORPUSCULAR HEMOGLOBIN 29.9 pg (27.0-33.0); MEAN CORPUSCULAR HGB CONC 31.9 g/dl (32.0-36.5); MEAN CORPUSCULAR VOLUME 93.9 fl (80.0-96.0); MONO # 0.3 10^3/uL (0.0-0.8); MONO % 4.6 % (0.0-5.0); NEUTROPHILS # 3.4 10^3/uL (1.5-8.5); NEUTROPHILS % 54.3 % (36.0-66.0); PLATELET COUNT, AUTOMATED 241 10^3/uL (150-450); RED BLOOD COUNT 4.58 10^6/uL (4.00-5.40); WHITE BLOOD COUNT 6.3 10^3/uL (4.0-10.0)
[2020-01-28 16:31] LABS: ALBUMIN 3.5 GM/DL (3.2-5.2); ALT/SGPT 22 U/L (12-78); BILIRUBIN,TOTAL 0.6 MG/DL (0.2-1.0); BLOOD UREA NITROGEN 15 MG/DL (7-18); CALCIUM LEVEL 9.1 MG/DL (8.5-10.1); CARBON DIOXIDE LEVEL 27 MEQ/L (21-32); CHLORIDE LEVEL 110 MEQ/L (98-107); CREATININE FOR GFR 0.56 MG/DL (0.55-1.30); FERRITIN 32 NG/ML (8-252); GLOMERULAR FILTRATION RATE > 60.0 (>51); GLUCOSE, FASTING 84 MG/DL (70-100); IRON (FE) 56 UG/DL (50-170); PERCENT SATURATION 16.7 % (13.2-45.0); POTASSIUM SERUM 4.6 MEQ/L (3.5-5.1); SODIUM LEVEL 140 MEQ/L (136-145); TOTAL IRON BINDING CAPACITY 335 UG/DL (250-450)
== END ==
LOC: M WUC 11:01
PROVIDERS: ATTEND Internal Medicine
DX: E61.1 Iron deficiency (principal)

== ENCOUNTER → 2020-06-17 | Outpatient (CLI) | payer OTHER ==
[~2020-06-17] MED LIST changes: +CYAN500T10 PO; -CYAN500T9 PO
--- NOTE | 2020-07-29 12:58 | REP ---
LUMBAR SPINE SERIES: 5-VIEWS (REPEAT DICTATION) HISTORY: Lower back pain. COMPARISON: Lumbar spine radiographs from 09/12/2015. NOTE: This study is presented to me for repeat dictation on 07/21/2020. FINDINGS: There are surgical clips in the right upper quadrant consistent with previous cholecystectomy. Vascular calcification is observed. Suture lines are visible in the left upper quadrant of the abdomen as well. Psoas margins are symmetric. Sacrum and sacroiliac (SI) joints are intact. Lumbar vertebral body heights are preserved. Alignment is normal. There is no evidence of spondylolysis or spondylolisthesis. There is degenerative disc narrowing at L4-5, L5-S1, and to a lesser extent L3-4. Discogenic spurring is seen at L4-5, L3-4, and L2-3. Discogenic spurring is noted in the lower thoracic spine as well. The degenerative disc narrowing at L4-5 has progressed somewhat since the 2015 study. IMPRESSION: Degenerative disc disease as noted above, somewhat more prominent than on the 2015 prior study. No acute bony abnormality. MTDD
== END ==
LOC: M WUC 11:49
PROVIDERS: ATTEND Physician Assistant
DX: M51.36 Other intervertebral disc degeneration, lumbar region (principal); R30.0 Dysuria; M51.37 Other intervertebral disc degeneration, lumbosacral region; M25.78 Osteophyte, vertebrae

== ENCOUNTER → 2023-04-29 | Outpatient (CLI) | payer OTHER ==
[~2023-04-29] MED LIST changes: -CYAN500T10 PO; +VITA500T37 PO
== END ==
LOC: M PLARAD 09:23
PROVIDERS: ATTEND Pain Medicine Interventional Pain Medicine
DX: M54.16 Radiculopathy, lumbar region (principal)

== ENCOUNTER 2023-05-31 11:52 | Emergency (ER) | payer OTHER ==
[~2023-05-31] VITALS: Ht 165.1 cm; Wt 115.6 kg
[2023-05-31 11:53] VITALS: TEMP 97.3
[2023-05-31] MEDS ORDERED: TRAM50TA2 PO (12:11)
[2023-05-31] MEDS ORDERED: FERR325T3 PO (12:11)
[2023-05-31 13:18] LABS: BASO % 0.6 % (0.0-1.0); EOS # 0.1 10^3/uL (0.0-0.5); EOS % 2.1 % (0.0-3.0); HEMATOCRIT 39.9 % (36.0-47.0); HEMOGLOBIN 12.6 g/dl (12.0-15.5); LYMPH # 2.3 10^3/uL (1.5-5.0); LYMPH % 36.5 % (24.0-44.0); MEAN CORPUSCULAR HEMOGLOBIN 27.9 pg (27.0-33.0); MEAN CORPUSCULAR HGB CONC 31.6 g/dl (32.0-36.5); MEAN CORPUSCULAR VOLUME 88.3 fl (80.0-96.0); MONO # 0.3 10^3/uL (0.0-0.8); MONO % 4.8 % (2.0-8.0); NEUTROPHILS # 3.4 10^3/uL (1.5-8.5); NEUTROPHILS % 55.4 % (36.0-66.0); PLATELET COUNT, AUTOMATED 292 10^3/uL (150-450); RED BLOOD COUNT 4.52 10^6/uL (4.00-5.40); WHITE BLOOD COUNT 6.2 10^3/uL (4.0-10.0)
[2023-05-31 13:43] LABS: INR 0.9; LIPASE 62 U/L (12-53); PROTHROMBIN TIME 12.3 SECONDS (12.5-14.5)
[2023-05-31 13:44] LABS: CPK CREATINE PHOSPHOKINASE 52 U/L (34-145)
[2023-05-31 13:45] LABS: ALBUMIN 3.3 G/DL (3.2-5.2); ALKALINE PHOSPHATASE 92 U/L (46-116); ALT/SGPT 10 U/L (7.0-40); AST/SGOT < 8 U/L (<34); BILIRUBIN,DIRECT < 0.1 MG/DL (<0.4); BILIRUBIN,TOTAL 0.2 MG/DL (0.3-1.2); BLOOD UREA NITROGEN 14 MG/DL (9-23); CALCIUM LEVEL 8.7 MG/DL (8.5-10.1); CARBON DIOXIDE LEVEL 28 MMOL/L (20-31); CHLORIDE LEVEL 106 MMOL/L (98-107); CK-MB VALUE MASS < 1.0 NG/ML (<3.6); CREATININE FOR GFR 0.54 MG/DL (0.55-1.30); GLOMERULAR FILTRATION RATE > 60.0 (>51); GLUCOSE, FASTING 92 MG/DL (60-100); MB/CK RELATIVE INDEX 1.92 (< OR =4); POTASSIUM SERUM 4.5 MMOL/L (3.5-5.1); SODIUM LEVEL 142 MMOL/L (136-145); TOTAL PROTEIN 6.7 G/DL (5.7-8.2)
[2023-05-31 13:46] LABS: THYROID STIMULATING HORMONE 3.345 uIU/ML (0.55-4.78)
[2023-05-31 14:25] LABS: VITAMIN B12 LEVEL 224 PG/ML (211-911)
[2023-05-31] MEDS ORDERED: ISOVUE-370 76% 100ML VIAL As Ordered ONE (14:28)
[2023-05-31 15:01] LABS: CK-MB VALUE MASS < 1.0 NG/ML (<3.6)
[2023-05-31 15:03] LABS: CPK CREATINE PHOSPHOKINASE 47 U/L (34-145); MB/CK RELATIVE INDEX 2.12 (< OR =4)
[2023-05-31] MEDS ORDERED: NS 1,000 ML IV ONE (16:45)
[2023-05-31 16:54] LABS: CK-MB VALUE MASS 1.2 NG/ML (<3.6)
[2023-05-31 16:55] LABS: MB/CK RELATIVE INDEX 2.35 (< OR =4)
[2023-05-31 19:18] VITALS: BP 120/81; O2SAT 96
[2023-05-31 19:23] VITALS: O2SAT 98
== END 2023-05-31 20:26 | disposition home or self-care (01) ==
LOC: M ED 11:52
DX: R00.1 Bradycardia, unspecified (principal); K91.86 Retained cholelithiasis following cholecystectomy; Z88.0 Allergy status to penicillin; Z88.8 Allergy status to other drugs, medicaments and biological substances; Z98.84 Bariatric surgery status; J44.9 Chronic obstructive pulmonary disease, unspecified; G47.30 Sleep apnea, unspecified; K44.9 Diaphragmatic hernia without obstruction or gangrene; Z79.899 Other long term (current) drug therapy
CPT/HCPCS: 36415; 71045; 71275; 74177; 76705; 80048; 80076; 81001; 82550; 82553; 82607; 83690; 83880; 84443; 85025; 85610; 87086; 93005; 93041; 94760; 99285; Q9967

== ENCOUNTER → 2025-05-22 | Outpatient (CLI) | payer OTHER ==
[2025-05-22 12:23] LABS: BASO # 0.0 10^3/uL (0.0-0.2); BASO % 0.8 % (0.0-1.0); EOS # 0.1 10^3/uL (0.0-0.5); EOS % 2.9 % (0.0-3.0); LYMPH # 1.0 10^3/uL (1.5-5.0); LYMPH % 20.4 % (24.0-44.0); MONO # 0.4 10^3/uL (0.0-0.8); MONO % 8.5 % (2.0-8.0); NEUTROPHILS # 3.3 10^3/uL (1.5-8.5); NEUTROPHILS % 67.0 % (36.0-66.0); PLATELET COUNT, AUTOMATED 241 10^3/uL (150-450)
[2025-05-22 12:50] LABS: APPEARANCE, URINE CLOUDY (CLEAR); BACTERIA, URINE AUTO 2+ (NEGATIVE); BILIRUBIN, URINE AUTO 1+ (NEGATIVE); BLOOD, URINE BLOOD 3+ (NEGATIVE); GLUCOSE, URINE (UA) AUTO NEGATIVE (NEGATIVE); KETONE, URINE AUTO NEGATIVE (NEGATIVE); LEUKOCYTE ESTERASE, URINE AUTO TRACE (NEGATIVE); MUCUS, URINE LARGE (NEGATIVE); NITRITE, URINE AUTO POSITIVE (NEGATIVE); PROTEIN, URINE AUTO 2+ mg/dL (NEGATIVE); RBC, URINE AUTO 41 /HPF (0-3); SPECIFIC GRAVITY URINE AUTO 1.024 (1.002-1.035); SQUAMOUS EPITHELIAL CELL UR AU 7 /HPF (0-6); UROBILINOGEN, URINE AUTO 4.0 mg/dL (0.0-2.0); WBC, URINE AUTO 50 /HPF (0-3)
[2025-05-22 13:01] LABS: ALT/SGPT 305 U/L (7.0-40); AST/SGOT 88 U/L (<34); CALCIUM LEVEL 8.7 MG/DL (8.5-10.1); CARBON DIOXIDE LEVEL 28 MMOL/L (20-31); CHLORIDE LEVEL 105 MMOL/L (98-107); CREATININE FOR GFR 0.62 MG/DL (0.55-1.30); GLOMERULAR FILTRATION RATE > 90.0 (>51); POTASSIUM SERUM 3.9 MMOL/L (3.5-5.1); SODIUM LEVEL 142 MMOL/L (136-145)
[2025-05-22 15:33] LABS: IRON (FE) 29 UG/DL (50-170)
== END ==
LOC: M LAB 11:54
PROVIDERS: ATTEND Physician Assistant
DX: N39.0 Urinary tract infection, site not specified (principal); R53.83 Other fatigue

== ENCOUNTER 2025-05-30 18:39 | Emergency (ER) | payer OTHER ==
[~2025-05-30] VITALS: Ht 167.6 cm; Wt 125.0 kg
[2025-05-30 19:46] LABS: BASO # 0.1 10^3/uL (0.0-0.2); BASO % 0.7 % (0.0-1.0); EOS # 0.1 10^3/uL (0.0-0.5); EOS % 1.9 % (0.0-3.0); LYMPH # 2.0 10^3/uL (1.5-5.0); LYMPH % 28.4 % (24.0-44.0); MONO # 0.5 10^3/uL (0.0-0.8); MONO % 6.4 % (2.0-8.0); NEUTROPHILS # 4.5 10^3/uL (1.5-8.5); NEUTROPHILS % 62.2 % (36.0-66.0); PLATELET COUNT, AUTOMATED 313 10^3/uL (150-450)
[2025-05-30] MEDS ORDERED: ISOVUE-370 76% 100 ML VIAL As Ordered ONE (20:05)
[2025-05-30] MEDS: ONDANSETRON 4MG 2ML VIAL IV ONE (20:07)
[2025-05-30] MEDS: KETOROLAC 30 MG/ML 1 ML VIAL IV ONE (20:07)
[2025-05-30 20:24] LABS: ALT/SGPT 67 U/L (7.0-40); AST/SGOT 74 U/L (<34); CK-MB VALUE MASS 1.5 NG/ML (<3.6)
[2025-05-30 20:27] LABS: CPK CREATINE PHOSPHOKINASE 34 U/L (34-145); MB/CK RELATIVE INDEX 4.41 (< OR =4)
[2025-05-30 23:01] VITALS: BP 137/85; TEMP 96.8
[2025-05-30] MEDS ORDERED: ONDA-282 PO (23:13)
[2025-05-30] MEDS ORDERED: KETO-204 PO (23:13)
[2025-05-30 23:26] VITALS: O2SAT 96
== END 2025-05-30 23:50 | disposition left against medical advice (07) ==
LOC: M ED 18:39
DX: K80.50 Calculus of bile duct without cholangitis or cholecystitis without obstruction (principal); E03.9 Hypothyroidism, unspecified; Z88.0 Allergy status to penicillin; Z88.8 Allergy status to other drugs, medicaments and biological substances; Z79.2 Long term (current) use of antibiotics; Z79.899 Other long term (current) drug therapy; Z53.9 Procedure and treatment not carried out, unspecified reason
CPT/HCPCS: 71260; 74160; 80047; 80076; 82550; 82553; 83605; 83690; 84484; 85025; 93005; 96374; 99284; J1885; J2405; Q9967

== ENCOUNTER → 2025-06-07 | Outpatient (CLI) | payer OTHER ==
[~2025-06-07] MED LIST changes: +KETO-204 PO; +ONDA-282 PO
[2025-06-07 12:07] LABS: PLATELET COUNT, AUTOMATED 363 10^3/uL (150-450)
[2025-06-07 12:36] LABS: ALT/SGPT 50 U/L (7.0-40); AST/SGOT 22 U/L (<34); CALCIUM LEVEL 9.2 MG/DL (8.5-10.1); CARBON DIOXIDE LEVEL 27 MMOL/L (20-31); CHLORIDE LEVEL 109 MMOL/L (98-107); CREATININE FOR GFR 0.63 MG/DL (0.55-1.30); GLOMERULAR FILTRATION RATE > 90.0 (>51); IRON (FE) 74 UG/DL (50-170); MAGNESIUM LEVEL 2.1 MG/DL (1.8-2.4); PERCENT SATURATION 17.2 % (13.2-45.0); PHOSPHORUS LEVEL 4.3 MG/DL (2.5-4.9); POTASSIUM SERUM 4.8 MMOL/L (3.5-5.1); SODIUM LEVEL 145 MMOL/L (136-145)
[2025-06-07 12:38] LABS: TOTAL 25(OH) VITAMIN D 25.4 NG/ML (20.0-100.0); VITAMIN B12 LEVEL 356 PG/ML (211-911)
[2025-06-07 12:41] LABS: ESTIMATED AVERAGE GLUCOSE 111.0 MG/DL (60-110)
== END ==
LOC: M LAB 11:25
PROVIDERS: ATTEND Student in an Organized Health Care Education/Training Program
DX: Z98.84 Bariatric surgery status (principal)

== ENCOUNTER → 2025-06-25 | Outpatient (CLI) | payer OTHER | LOC: M RAD 07:20 | PROVIDERS: ATTEND Student in an Organized Health Care Education/Training Program | DX: K80.50 Calculus of bile duct without cholangitis or cholecystitis without obstruction (principal) ==